=== PATIENT | female | born 1960 | race African-American/Black ===

== ENCOUNTER → 2017-01-31 | Day surgery (SDC) | payer BC ==
[~2017-01-31] MED LIST: ACETAMINOPHEN PO; DYAZIDE 37.5/251 CAP PO; FLEXERIL PO; IBUPROFEN PO; KETOPROFEN PO; MOBIC15 MG PO; TRIAMTERENE-HC1 EACH PO; VICODIN 5/500 T1 TAB PO; VITAMIN D2000 UNIT PO; WATER PILL
--- NOTE | ~2017-01-31 | OR ---
Unit #: [id number] #: [id number] Patient: CLIFFORD TOBIN [id number] [address] [place], [place] [address] [id number] O MR#: [id number] NAME: CLIFFORD TOBIN ROOM: Date of Procedure: 01/31/2017 Admission Date: 01/31/2017 Surgeon: Raheem Andrews M.D. : 1960 Attending Physician: Raheem Andrews M.D. Referring Physician: Raheem Andrews M.D. Primary Care Physician: Kelli Guzman M.D. OPERATIVE REPORT PRIMARY CARE PHYSICIAN Kelli Guzman M.D. PREOPERATIVE DIAGNOSES The patient has come for colorectal cancer screening. She has a family history of colon cancer and personal history of colon polyps in the remote past. PROCEDURE PERFORMED Colonoscopy up to cecum with excellent preparation and good visualization. POSTOPERATIVE DIAGNOSES Completely normal examination up to cecum. The quality of prep was excellent. RECOMMENDATIONS Repeat colonoscopy in 5 years. SEDATION USED MAC. DESCRIPTION OF PROCEDURE Following detailed explanation of the potential risks and complications of a colonoscopy, namely perforation, bleeding, and complications related to sedation, the patient was brought to GI lab and laid in the left lateral decubitus position. A digital rectal examination was performed, which was normal. Lubricated tip of the Olympus video colonoscope was inserted through the anus and advanced under direct vision. The scope was advanced and passed up to sigmoid into descending colon. No diverticula were seen in this area. The scope tip was then navigated all the way up to cecum with visualization of ileocecal valve and the appendiceal orifice. Preparation was excellent with good visualization and photodocumentation was obtained. Last several inches of terminal ileum also visualized after intubation of the ileocecal valve and appeared normal. Successive segments of the colonic mucosa were examined upon withdrawal and appeared unremarkable. There being no polyps, mass lesions, AVMs, or diverticula. The patient did not have any hemorrhoids at anal verge. The scope was then withdrawn. The patient returned to the recovery area. She tolerated the procedure without any postprocedure complications. Dictated by... Unit #: [id number] #: [id number] Patient: CLIFFORD TOBIN Francisco Maldonado/dipti TD: 01/31/2017 12:49 JOB #: [id number] OPERATIVE REPORT Page 1 of 1 X Raheem Andrews MD PROCEDURE OPERATIVE NOTE
== END | disposition home or self-care (01) ==
LOC: COPS 06:12
DX: Z12.11 Encounter for screening for malignant neoplasm of colon (principal); I10 Essential (primary) hypertension; Z86.010 Personal history of colon polyps; Z87.891 Personal history of nicotine dependence; Z80.0 Family history of malignant neoplasm of digestive organs; Z79.1 Long term (current) use of non-steroidal anti-inflammatories (NSAID); Z79.899 Other long term (current) drug therapy; Z90.710 Acquired absence of both cervix and uterus; Z98.51 Tubal ligation status; Z98.890 Other specified postprocedural states